=== PATIENT | male | born 1995 | race Caucasian/White ===

== ENCOUNTER 2020-12-27 15:18 | Outpatient (CLI) | payer OTHER ==
[2020-12-27 16:09] VITALS: BP 137/95
--- NOTE | 2020-12-27 16:09 | SLEEP CARE CONSULTATION ---
Information from patient questionnaire entered by Jairo Porter. I have reviewed and concur with the information entered by Jairo Porter. This document represents the service I personally performed and the decisions made by me, Zonia Craft ARNP. History of Present Illness Service Date and Time: 12/27/2020 1518 Reason for Visit: New patient Chief Complaint: reports: Unrefreshed sleep, Snoring, Excessive daytime sleepiness, Observed pauses in breathing, Fatigue Date of Onset: About a year and a half Usual bedtime: Midnight Time it takes to fall asleep: 20-60 minutes Snores at night: Yes Observed to quit breathing while asleep: Yes Sleeps alone due to snoring: No Number of times waking at night: Once Reasons for waking at night: reports: Snoring, Other (Unknown reason). denies: Choking, Gasping for air Toss, Turn, or Twitch while sleeping: Yes Recalls having dreams: Yes Usually gets out of bed at: 6:20; weekends 0730 sometimes Feels refreshed in the morning: No Morning headache: No Sleepy or fatigued during the day: Yes Ever fallen asleep while driving: No Takes day naps: Yes (daily after work for an hour or more) Dreams during day naps: Yes Prior sleep studies: No Additional HPI information: I had the pleasure of seeing TRACY CHOUDHURY today regarding the possibility of him having a sleep disorder. His current complaints are excessive daytime sleepiness, fatigue, snoring and unrefreshed sleep. He is here because his has noted that he is snoring a lot, more than used too. He is really tired all the time. Feels he needs a nap after work every day. He normally gets about an hour or more for his nap. His has said he will pause after he exhales when sleeping. He has woke himself up snoring only when he is just lightly asleep or trying to take a nap. He states he never feels rested, even when getting good amounts of sleep. - Parasomnia Symptoms Ever been unable to move upon waking from sleep: Yes Walks in sleep: No Talks in sleep: No Ever acted out dreams in sleep: Yes (couple times only; sat up in bed with angry dream and yelled) Ever felt weak in the knees when startled or emotional: No Bothered by creepy, crawly, restless sensations in legs: Yes (all the time; feels like he has to move his legs) Problems with memory or concentration: Yes (has hx of ADHD) Subjective Initial [place] Sleepiness Scale score: 10 (in 2020) Past Medical History Past Medical History: reports: Hypertension, Anxiety, Attention deficit, Other (testicular cancer last year, had surgery in Dec 2019; 2 rounds of chemotherapy) Social History The patient's occupation is active duty in the [employer]. Patient is and lives in [place]. Have you smoked in the past 12 months: No Cigarettes per day (20/pack): 10 Years of smokin Quit date: 2012 Smoking Pack Years: 2.0 Alcohol use: Yes Alcohol amount and frequency: 4-6 standard drinks, 3-4 times a week Caffeine use: Yes Caffeine amount and frequency: 250 mg daily Family History Family history of sleep disordered breathing: No Family Hx Sleep Apnea: Mother: Snoring, Father: Snoring Allergies and Home Medications Drug allergies reviewed: Yes (NKDA) Home medication list reviewed: Yes Allergy and home medication list: Lisinopril Prozac 20 mg daily Adderrall extended release 30 mg daily Mulitvitamin Zyrtec daily Review of Systems Weight gain over past 5 years: 20 Cardiovascular: reports: high blood pressure Gastrointestinal: denies: heartburn Neurological: denies: headaches Psychiatric: reports: Attention Deficit Hyperactivity, anxiety Ear/Nose/Throat: reports: dry mouth/throat, wisdom teeth removed. denies: tonsillectomy Endocrine: reports: sluggishness (tired) Physical Exam Blood Pressure: 137/95 Cuff size: wrist Heart Rate: 103 O2 Saturation: 98 Height: 5 ft 10 in Weight: 199 lb 12.8 oz Body Mass Index: 28.6 BMI Classification: Overweight Neck circumference: 16 (inches) Nostrils: patent to airflow Mouth and throat: narrow oropharynx Soft palate: long Hard palate: normal Uvula: normal Uvula visualization: 50% Mallampati Class II Tongue: enlarged in size with teeth mansfield on lateral edges Tonsils: 1+ Chin and jaw: Retrognathia (mild) Neck: normal w/o lymphadenopathy or thyromegaly Heart: regular rate and rhythm Lungs: clear bilaterally Impression and Plan 1. Suspected Obstructive Sleep Apnea-Hypopnea Syndrome, as suggested by a history of loud and irregular snoring, observed cessation of breath while asleep, unrefreshed sleep, cognitive impairment, and excessive daytime sleepiness. Narrow oropharynx and obesity are common predisposing factors for obstructive sleep apnea-hypopnea syndrome. I recommend proceeding to polysomnography to confirm the diagnosis and to assess severity. If the patient has significant sleep disordered breathing, a manual CPAP titration study will also be performed to find the optimal treatment pressure. I informed the patient of what the sleep studies involve and after some discussion, obtained agreement to proceed. The pathophysiology of obstructive sleep apnea-hypopnea syndrome was discussed with the patient and health risks of cardiovascular and cerebrovascular disease if not treated. AAS brochure for obstructive sleep apnea-hypopnea syndrome given and reviewed. Risks of drowsy driving discussed in detail and patient advised to avoid long distance driving and to chain puller at the first sign of drowsiness. Patient agreed to plan. * Schedule polysomnography +- manual CPAP titration study and return in 1-2 weeks after the study to discuss result and initiate therapy. * Avoid long distance driving or driving when feeling sleepy. * Avoid alcohol, sedative and muscle relaxant around bedtime. * Attempt to lose weight. * Review instructions provided by trained office staff on how to prepare for the sleep study. * Return for follow-up after sleep study completed. Counseling Topics: Weight loss health impact Visit Type: In Office Time Spent with Patient (minutes): 30 Provider Statement: I spent 100% of the Face to Face Visit with the patient with greater than 50% spent counseling the patient and coordination of care.
== END 2020-12-27 15:19 | disposition home or self-care (01) ==
LOC: SC 15:18
PROVIDERS: ATTEND Nurse Practitioner Family
DX: R06.83 Snoring (principal); R06.81 Apnea, not elsewhere classified; R41.89 Other symptoms and signs involving cognitive functions and awareness; G47.10 Hypersomnia, unspecified
CPT/HCPCS: 99203; 99212

== ENCOUNTER 2021-01-14 15:00 | Outpatient (CLI) | payer OTHER | END 2021-01-14 15:01 | disposition home or self-care (01) | LOC: SC 15:00 | PROVIDERS: ATTEND Nurse Practitioner Family | DX: G47.33 Obstructive sleep apnea (adult) (pediatric) (principal); R09.02 Hypoxemia; R00.0 Tachycardia, unspecified | CPT/HCPCS: 95806 ==

== ENCOUNTER 2021-01-30 11:31 | Outpatient (CLI) | payer OTHER ==
--- NOTE | 2021-01-30 12:00 | SLEEP CARE CONSULTATION ---
Information from patient questionnaire entered by Luke Felipe MA. I have reviewed and concur with the information entered by Luke Felipe MA. This document represents the service I personally performed and the decisions made by , Zonia Craft ARNP. History of Present Illness Service Date and Time: 01/30/2021 1131 Initial [place] Sleepiness Scale score: 10 (in 2020) Current [place] Sleepiness Scale score: 10 (2020) Additional HPI information: TRACY CHOUDHURY returns for follow up and results of the recently performed home sleep study. I explained the pathophysiology behind obstructive sleep apnea. We then spent quite a bit of time discussing different treatment options. For mild obstructive sleep apnea, surgery and oral appliance are alternatives to nasal CPAP therapy but in moderate or severe cases, nasal CPAP is the most effective and reliable treatment. I reviewed the impact of weight changes on sleep apnea and strongly recommended losing weight. After some discussion, the patient opted to go with the nasal CPAP therapy. Nasal autoCPAP set at 4-15 cmH20 will be ordered with rationale explained. A manual titration study will be ordered if unable to find optimal pressure with office adjustments. I explained how CPAP machine works with sample devices RespirUfora Dreamstation and ResInvenias [id number] and what to expect when using the machine. Using CPAP every night in order to get used to it was emphasized. Patient advised to put CPAP mask on before getting into bed so as not to fall asleep without CPAP. To assist acclimation to CPAP use, it could also be used for a short time during day while reading or watching TV. The patient was instructed to call the CPAP supplier to discuss any mechanical problem that may occur. If the mask given is uncomfortable or is difficult to keep on through the night even with adjustment, contact the CPAP supplier as many will replace with another mask style if notified before 30 days. If snoring or perceives is not getting enough air or too much air from the machine, notify this office. AASM patient education PAP tips reviewed and given to patient. Patient counseled not drink alcohol less than 4 hours before bedtime as it can increase snoring and apnea. Patient was cautioned about risks of drowsy driving until sleepiness symptoms resolve. Sleep Study - Results Type of Sleep Study: Home sleep study Prior sleep studies: No Polysomnography/Home Sleep Study results: Physician Impression: The quality of the study is good. The length of the study is adequate (> 240 minutes). Please also see the tabulated and graphic data. 1. Obstructive Sleep Apnea-Hypopnea (ICD-10 G47.33), mild, with an AHI of 10.8/h r and demetria SaO2 of 80%. During the study, the patient had 23 apneas (23 obstructive, 0 central, 0 mixed) and 35 hypopneas. The longest episode lasted 59.0 seconds. The respiratory events occurred independently of sleep stage and body position (supine AHI was 11.4 and non-supine, 9.10). 2. Hypoxemia (ICD-10 R09.02), mild, with the lowest oxygen saturation of 80 % and 0.9 minutes with SaO2 under 90%. Baseline oxygen saturation was normal (Average oxygen saturation was 95%). 3. Tachycardia, with maximum recorded heart rate of 123 beats per minute. Allergies and Home Medications Home medication list reviewed: Yes (no changes) Review of Systems Review of systems same as previous: Yes (no changes) Physical Exam Vital signs obtained and entered by: Inocencio VARELA Blood Pressure: 123/64 (left) Cuff size: wrist Heart Rate: 96 O2 Saturation: 93 (with Mask) Height: 5 ft 10 in Weight: 195 lb (with boots) Body Mass Index: 27.9 BMI Classification: Overweight Impression and Plan 1. Obstructive Sleep Apnea-Hypopnea Syndrome, mild, with lowest oxygen saturation of 80%. Obviously this is the cause of the patients symptoms of unrefreshed sleep, and excessive daytime sleepiness. Positive pressure therapy could benefit hypertension, anxiety and attention deficit disorder. As mentioned above, the patient will be started on nasal autoCPAP therapy with pressure set at 4-15 cmH2O. A manual titration study will be completed if unable to find optimal treatment pressure with office adjustments. Compliance guidelines also reviewed. A copy of compliance guidelines will be given for reference at check out. 2. Hypoxemia, mild, with the lowest oxygen saturation of 80 % and 0.9 minutes with SaO2 under 90%. His baseline oxygen saturation was normal with an average oxygen saturation of 95%. 3. Tachycardia, with maximum recorded heart rate of 123 beats per minute during HST. Patient states he has had times when he is just sitting and he notes an elevated heart rate on his watch, but states it is not often. He was encouraged to follow up with PCP for further evaluation of elevated heart rate as needed. * Nasal auto CPAP therapy, pressure at 4-15 cm H2O. * follow up with PCP for elevated heart rate prn * Attempt to lose weight. * Avoid alcohol consumption near bedtime. * The patient is again cautioned about driving until sleepiness completely resolves. * Return one month after CPAP obtained. I will assess response to therapy and compliance at that time. Counseling Topics: Weight loss health impact Visit Type: In Office Time Spent with Patient (minutes): 21 Provider Statement: I spent 100% of the Face to Face Visit with the patient with greater than 50% spent counseling the patient and coordination of care.
[2021-01-30 12:01] VITALS: BP 123/64
== END 2021-01-30 11:32 | disposition home or self-care (01) ==
LOC: SC 11:31
PROVIDERS: ATTEND Nurse Practitioner Family
DX: G47.33 Obstructive sleep apnea (adult) (pediatric) (principal); R00.0 Tachycardia, unspecified
CPT/HCPCS: 99212; 99213

== ENCOUNTER 2021-06-06 13:31 | Outpatient (CLI) | payer OTHER ==
[2021-06-06 13:59] VITALS: BP 125/73
--- NOTE | 2021-06-06 13:59 | SLEEP CARE CONSULTATION ---
Information from patient questionnaire entered by Luke Felipe MA. I have reviewed and concur with the information entered by Luke Felipe MA. This document represents the service I personally performed and the decisions made by , Zonia Craft ARNP. History of Present Illness Service Date and Time: 06/06/2021 1331 Previous diagnosis: Mild, Obstructive Sleep Apnea-Hypopnea Syndrome AHI: 10.8 (in 2020) Reason for follow up: first compliance Equipment type: CPAP Equipment obtained from: Other ([facility]; got initial supplies) Mask style: Full face Mask brand: Resmed (RESMED. 04/01 SET UP DATE,) Backup mask available: No (will keep old mask when replaced) Last cushion change: 1 month Prior sleep studies: No Type of Sleep Study: Home sleep study HPI additional information: TRACY CHOUDHURY was diagnosed to have mild, AHI 10.8, obstructive sleep apnea- hypopnea syndrome and returned today for CPAP therapy first compliance follow- up. Sleep Study - Results Type of Sleep Study: Home sleep study Prior sleep studies: No CPAP Compliance Data - Data Reviewed with Patient Average duration of nightly device use: 3 HOURS 31 MINUTES Compliance rate %: 13 Current pressure setting (cmH2O): 4-15 (median 6.2, avg 8.8, max 9.8) Average residual AHI: 2.8 Central apnea: .8 Obstructive apnea: 1.4 Average large leak: 4.6 Subjective Missed days of use due to: reports: other (cleaning/forget thing) Patient concerns: reports: dry mouth, nose, throat (occasional). denies: aerophagia, mask discomfort, air blowing in eyes, mask leak noise, condensation in mask/hose, nasal congestion, epistaxis Observed to snore while using device: No Current pressure setting perceived as: comfortable On therapy, patient: reports: sleeping better, awakening more refreshed, being more awake and alert during the day, more rested overall. denies: drowsiness while driving Initial [place] Sleepiness Scale score: 10 (in 2020) Current [place] Sleepiness Scale score: 8 (2021) Allergies and Home Medications Home medication list reviewed: Yes (no changes) Review of Systems Review of systems same as previous: Yes (no changes) Physical Exam Vital signs obtained and entered by: NOE RAYO Blood Pressure: 125/73 (RIGH, PULSE 72, RESP 16,) Heart Rate: 72 O2 Saturation: 98 (PAPER MASK) Height: 5 ft 10 in Weight: 188 lb Weight change since last visit: 8 lb loss Body Mass Index: 26.9 BMI Classification: Overweight Impression and Plan 1. Obstructive Sleep Apnea-Hypopnea Syndrome, mild, with poor treatment compliance and good apnea control. On CPAP therapy, the patient has better sleep quality and is more rested overall. The patients pressure will be changed to autoCPAP 8-10 cmH20 to reflect pressure being used. Patient advised to contact me if pressure change is uncomfortable so that it can be adjusted. Goals for apnea control discussed. He states early on he would take the mask off a few hours after he went to sleep or just forget to put it on. He has been more co nsistent in putting he mask on at night in the last 2 weeks. He has also had a few night where he made it to 5 hours or so and noticed a difference in feeling rested and less daytime tiredness. Compliance guidelines reviewed for insurance coverage. Patient was counseled on the difference between meeting compliance and optimal use of CPAP. Optimal use of CPAP is use of CPAP with all sleep to obtain maximum benefit of treatment. Patient is encouraged to use CPAP with all sleep. He has had some occasional mouth dryness. Oral dryness can be reduced by adjusting humidity setting higher or heated hose lower or by adjusting both settings. Verbal instructions given on how to change humidity and heated hose settings with rationale explaining why to change. Patient to discuss best option with dentist. Patient's apnea severity and rationale for treatment to reduce apnea, improve sleep quality and reduce cardiovascular and cerebrovascular events was reviewed. I also reviewed the benefit of consistent device use of CPAP for hypertension, anxiety and attention deficit. Patient is overweight. He has lost about 8 pounds since his last visit. I encouraged him to continue to try to lose weight and he voiced understanding. * Change auto CPAP pressure to 8-10 cmH2O * Notify me if snoring with mask or feeling that the pressure is too much or too little * Continue to try to lose weight * Call this office if any problems using CPAP * Return for follow up in 1-2 months, or sooner if concerns arise Counseling Topics: Spare mask, Weight loss health impact Visit Type: In Office Time Spent with Patient (minutes): 21 Provider Statement: I spent 100% of the Face to Face Visit with the patient with greater than 50% spent counseling the patient and coordination of care.
== END 2021-06-06 13:32 | disposition home or self-care (01) ==
LOC: SC 13:31
PROVIDERS: ATTEND Nurse Practitioner Family
DX: G47.33 Obstructive sleep apnea (adult) (pediatric) (principal)
CPT/HCPCS: 99212; 99213

== ENCOUNTER 2021-08-05 13:44 | Outpatient (CLI) | payer OTHER ==
--- NOTE | 2021-08-05 14:16 | SLEEP CARE CONSULTATION ---
Information from patient questionnaire entered by Luke Felipe MA. I have reviewed and concur with the information entered by Luke Felipe MA. This document represents the service I personally performed and the decisions made by , Zonia Craft ARNP. History of Present Illness Service Date and Time: 08/05/2021 1344 Previous diagnosis: Mild, Obstructive Sleep Apnea-Hypopnea Syndrome AHI: 10.8 (in 2020) Reason for follow up: other (2 MONTH F/U, RESMED, ) Equipment type: CPAP Equipment obtained from: Other ([facility]; getting supplies) Mask style: Full face Backup mask available: Yes (old mask) Last cushion change: 2 months Prior sleep studies: No Type of Sleep Study: Home sleep study HPI additional information: TRACY CHOUDHURY was diagnosed to have mild, AHI 10.8, obstructive sleep apnea- hypopnea syndrome and returned today for CPAP therapy 2 month follow-up. Sleep Study - Results Type of Sleep Study: Home sleep study Prior sleep studies: No CPAP Compliance Data - Data Reviewed with Patient Average duration of nightly device use: 3 HOURS 7 MINUTES Compliance rate %: 10 (04/27 - 06/25/2021) Current pressure setting (cmH2O): 4-15 Average residual AHI: 3.1 Central apnea: 1.2 Obstructive apnea: 1.5 Average large leak: 6.6 Compliance data discussion: He does not have a memory chip from his machine to get updated compliance/therapy report. He has been having more nasal congestion lately, difficulty breathing through his nose and will take mask off because he feels like he is suffocating. Subjective Patient concerns: reports: nasal congestion, other (feels like suffocating; may be also due to anxiety). denies: aerophagia, mask discomfort, air blowing in eyes, mask leak noise, condensation in mask/hose, dry mouth, nose, throat, epistaxis Observed to snore while using device: No Current pressure setting perceived as: comfortable On therapy, patient: reports: sleeping better, awakening more refreshed, being more awake and alert during the day, more rested overall. denies: drowsiness while driving Initial [place] Sleepiness Scale score: 10 (in 2020) Current [place] Sleepiness Scale score: 7 (07/2021) Allergies and Home Medications Home medication list reviewed: Yes (no changes) Review of Systems Review of systems same as previous: Yes (no changes) Physical Exam Vital signs obtained and entered by: NOE RAYO Blood Pressure: 135/76 (RIGHT, PULSE 100, RESP 18, ) Heart Rate: 99 O2 Saturation: 97 Height: 5 ft 10 in Weight: 194 lb Body Mass Index: 27.8 BMI Classification: Overweight Impression and Plan 1. Obstructive Sleep Apnea-Hypopnea Syndrome, mild, with poor treatment compliance and good apnea control. On CPAP therapy, the patient has better sleep quality and is more rested overall. He states he has been using it but lately his allergies have been worse. He has been having some nasal congestion which makes him feel like he is not able to breathe and is suffocating. Compliance guidelines reviewed for insurance coverage. Patient was counseled on the difference between meeting compliance and optimal use of CPAP. Optimal use of CPAP is use of CPAP with all sleep to obtain maximum benefit of treatment. Patient is encouraged to use CPAP with all sleep. Patient does have allergies and is taking Zyrtec daily. I informed patient that nasal congestion can be reduced with increasing the CPAP humidity. The heated hose can be adjusted h igher if condensation with higher humidity setting. Saline nasal spray sample can be obtained OTC and used prior to bed to wash off any nasal allergens to facilitate nasal breathing. In addition, a steamy shower before bed will often assist nasal drainage. Patient's apnea severity and rationale for treatment to reduce apnea, improve sleep quality and reduce cardiovascular and cerebrovascular events was reviewed. I also reviewed the benefit of consistent device use of CPAP for hypertension, depression and anxiety. Patient was advised to lose weight to reduce apneas and improve his overall health. * Continue auto CPAP pressure at 4-15 cmH2O * Notify me if snoring with mask or feeling that the pressure is too much or too little * Attempt to lose weight * Call this office if any problems using CPAP * Return for follow up in 1-2 months, or sooner if concerns arise Counseling Topics: Spare mask, Weight loss health impact Visit Type: In Office Time Spent with Patient (minutes): 12 Provider Statement: I spent 100% of the Face to Face Visit with the patient with greater than 50% spent counseling the patient and coordination of care.
[2021-08-05 14:17] VITALS: BP 135/76
== END 2021-08-05 13:45 | disposition home or self-care (01) ==
LOC: SC 13:44
PROVIDERS: ATTEND Nurse Practitioner Family
DX: G47.33 Obstructive sleep apnea (adult) (pediatric) (principal); E66.3 Overweight; Z68.27 Body mass index [BMI] 27.0-27.9, adult
CPT/HCPCS: 99212

== ENCOUNTER 2021-08-17 08:00 | Outpatient (CLI) | payer OTHER | END 2021-08-17 23:59 | disposition home or self-care (01) | LOC: LAB.N 08:00 | PROVIDERS: ATTEND Family Medicine | DX: U07.1 COVID-19 (principal) ==

== ENCOUNTER 2021-10-21 13:23 | Outpatient (CLI) | payer OTHER ==
[2021-10-21 14:35] VITALS: BP 122/78
--- NOTE | 2021-10-21 14:35 | SLEEP CARE CONSULTATION ---
Information from patient questionnaire entered by Luke Felipe MA. I have reviewed and concur with the information entered by Luke Felipe MA. This document represents the service I personally performed and the decisions made by , Zonia Craft ARNP. History of Present Illness Service Date and Time: 10/21/2021 1323 Previous diagnosis: Mild, Obstructive Sleep Apnea-Hypopnea Syndrome AHI: 10.8 (in 2020) Reason for follow up: other (7 WEEK F/U, RESMED, JONES 04/01/2021, ) Equipment type: CPAP Equipment obtained from: Other ([facility]; getting supplies) Mask style: Full face Backup mask available: Yes (other mask) Last cushion change: 1 month Prior sleep studies: Yes Type of Sleep Study: Home sleep study HPI additional information: TRACY CHOUDHURY was diagnosed to have mild, AHI 10.8, obstructive sleep apnea- hypopnea syndrome and returned today for CPAP therapy 7 week follow-up. Sleep Study - Results Type of Sleep Study: Home sleep study Prior sleep studies: No CPAP Compliance Data - Data Reviewed with Patient Average duration of nightly device use: 3 HOURS 8 MINUTES Compliance rate %: 4 (09/06/21-10/20/21; 45 days) Current pressure setting (cmH2O): 8-10 Average residual AHI: 1.2 Central apnea: .5 Obstructive apnea: 4 Hypopnea: .1 Average large leak: 7.0 Subjective Missed days of use due to: reports: mask issues (claustrophobic with mask on), illness (Covid), other (takes longer to fall asleep with the mask on; anxiety) Patient concerns: reports: mask discomfort. denies: aerophagia, air blowing in eyes, mask leak noise, condensation in mask/hose, nasal congestion, dry mouth, nose, throat, epistaxis, other Observed to snore while using device: No Current pressure setting perceived as: comfortable On therapy, patient: reports: sleeping better, more rested overall. denies: drowsiness while driving Initial [place] Sleepiness Scale score: 10 (in 2020) Current [place] Sleepiness Scale score: 9 (10/21/21) Allergies and Home Medications Home medication list reviewed: Yes (no changes) Review of Systems Review of systems same as previous: No (Covid beginning of August 2021) Physical Exam Vital signs obtained and entered by: NOE RAYO Blood Pressure: 122/78 (RESP 18, PULSE 68, RIGHT) Cuff size: wrist Heart Rate: 68 O2 Saturation: 98 (PAPER MASK) Height: 5 ft 10 in Weight: 190 lb (UNIFORM AND BOOTS) Weight change since last visit: HEALTHY DIET, Body Mass Index: 27.2 BMI Classification: Overweight Impression and Plan 1. Obstructive Sleep Apnea-Hypopnea Syndrome, mild, with poor treatment compliance and good apnea control. On CPAP therapy, the patient has better sleep quality and is more rested overall. He has had some claustrophobia with his full face mask that is affecting his compliance. I will write for a mask fitting for a nasal pillows mask to see if this is more comfortable for him. He has one at home and would like to try this. Compliance guidelines reviewed for insurance coverage. Patient was counseled on the difference between meeting compliance and optimal use of CPAP. Optimal use of CPAP is use of CPAP with all sleep to obtain maximum benefit of treatment. Patient is encouraged to use CPAP with all sleep. Patient's apnea severity and rationale for treatment to reduce apnea, improve sleep quality and reduce cardiovascular and cerebrovascular events was reviewed. I also reviewed the benefit of consistent device use of CPAP for hypertension, depression and anxiety. * Continue auto CPAP pressure at 8-10 cmH2O * Mask fitting for nasal pillows mask * Notify me if snoring with mask or feeling that the pressure is too much or too little * Attempt to lose weight * Call this office if any problems using CPAP * Return for follow up in 3 months, or sooner if concerns arise Counseling Topics: Spare mask, Weight loss health impact Visit Type: In Office Time Spent with Patient (minutes): 22 Provider Statement: I spent 100% of the Face to Face Visit with the patient with greater than 50% spent counseling the patient and coordination of care.
== END 2021-10-21 13:24 | disposition home or self-care (01) ==
LOC: SC 13:23
PROVIDERS: ATTEND Nurse Practitioner Family
DX: G47.33 Obstructive sleep apnea (adult) (pediatric) (principal); E66.3 Overweight; Z68.27 Body mass index [BMI] 27.0-27.9, adult
CPT/HCPCS: 99212; 99213

== ENCOUNTER 2022-01-30 12:37 | Outpatient (CLI) | payer OTHER ==
[2022-01-30 13:20] VITALS: BP 130/80
--- NOTE | 2022-01-30 13:20 | SLEEP CARE CONSULTATION ---
Information from patient questionnaire entered by Alesha Ramsey. I have reviewed and concur with the information entered by Alesha Ramsey. This document represents the service I personally performed and the decisions made by me, Zonia Craft ARNP. History of Present Illness Service Date and Time: 01/30/2022 1237 Previous diagnosis: Mild, Obstructive Sleep Apnea-Hypopnea Syndrome AHI: 10.8 (in 2020) Reason for follow up: three month (F/U ) Equipment type: CPAP (RESMED) Equipment obtained from: Other ([facility]; getting supplies) Mask style: Nasal Backup mask available: Yes (other mask) Last cushion change: 1 month Prior sleep studies: No Type of Sleep Study: Home sleep study HPI additional information: TRACY CHOUDHURY was diagnosed to have mild, AHI 10.8, obstructive sleep apnea- hypopnea syndrome and returned today for CPAP therapy three month follow-up. Sleep Study - Results Type of Sleep Study: Home sleep study Prior sleep studies: No CPAP Compliance Data - Data Reviewed with Patient Average duration of nightly device use: 3 hours 10 minutes Compliance rate %: 4 ( days) Current pressure setting (cmH2O): 8-10 Average residual AHI: 3.0 Central apnea: 0.7 Obstructive apnea: 1.9 Subjective Missed days of use due to: reports: mask issues, illness (recent cold), other (will forget to put on when coming back from bathroom) Patient concerns: reports: dry mouth, nose, throat. denies: aerophagia, mask discomfort, air blowing in eyes, mask leak noise, condensation in mask/hose, nasal congestion, epistaxis Observed to snore while using device: No Current pressure setting perceived as: comfortable On therapy, patient: reports: sleeping better, awakening more refreshed, being more awake and alert during the day, more rested overall. denies: drowsiness while driving Initial [place] Sleepiness Scale score: 10 (in 2020) Current [place] Sleepiness Scale score: 8 (01/28/2022) Allergies and Home Medications Drug allergies reviewed: Yes (NKDA) Home medication list reviewed: Yes (no changes) Review of Systems Review of systems same as previous: Yes (no changes) Physical Exam Vital signs obtained and entered by: ALESHA Sanchez MA Blood Pressure: 130/80 (left arm) Cuff size: regular Heart Rate: 102 O2 Saturation: 99 Height: 5 ft 10 in Weight: 197 lb 12.8 oz Body Mass Index: 28.3 BMI Classification: Overweight Impression and Plan 1. Obstructive Sleep Apnea-Hypopnea Syndrome, mild, with poor treatment compliance and good apnea control. On CPAP therapy, the patient has better sleep quality and is more rested overall. Patient states he got a new nasal cushion mask and he is really liking it a lot better. It does not make him feel claustrophobic like the full face mask he was using. He started using his CPAP machine again and then developed a cold which limited his ability to breathe through his nose. He did try some nasal sprays at bedtime which did help with that. He does notice a difference when he uses his CPAP and is committed to c ontinuing using his CPAP. He states sometimes he will get up for the bathroom and forget to put his mask back on. I advised him to put his mask on his pillow to help remind him to replace it before going back to sleep. He voiced understanding and will try this. Patient has significant improvement of their sleep apnea and are satisfied with current CPAP therapy. Patient's apnea severity and rationale for treatment to reduce apnea, improve sleep quality and reduce cardiovascular and cerebrovascular events was reviewed. I also reviewed the benefit of consistent device use of CPAP for hypertension, depression and anxiety. Patient is overweight with a BMI of 28.3 and was advised to lose weight. * Continue auto CPAP pressure at 8-10 cmH2O * Notify me if snoring with mask or feeling that the pressure is too much or too little * Attempt to lose weight * Call this office if any problems using CPAP * Return for follow up in 1-2 months, or sooner if concerns arise Counseling Topics: Spare mask, Weight loss health impact Visit Type: In Office Time Spent with Patient (minutes): 20 Provider Statement: I spent 100% of the Face to Face Visit with the patient with greater than 50% spent counseling the patient and coordination of care.
== END 2022-01-30 12:38 | disposition home or self-care (01) ==
LOC: SC 12:37
PROVIDERS: ATTEND Nurse Practitioner Family
DX: G47.33 Obstructive sleep apnea (adult) (pediatric) (principal); E66.3 Overweight; Z68.28 Body mass index [BMI] 28.0-28.9, adult
CPT/HCPCS: 99212; 99213

== ENCOUNTER 2022-04-02 09:34 | Outpatient (CLI) | payer OTHER ==
--- NOTE | 2022-04-02 09:57 | SLEEP CARE CONSULTATION ---
Information from patient questionnaire entered by Alesha Ramsey. I have reviewed and concur with the information entered by Alesha Ramsey. This document represents the service I personally performed and the decisions made by me, Zonia Craft ARNP. History of Present Illness Service Date and Time: 04/02/2022 0934 Previous diagnosis: Mild, Obstructive Sleep Apnea-Hypopnea Syndrome AHI: 10.8 (in 2020) Reason for follow up: other (6 WEEK F/U ) Equipment type: CPAP (RESMED Airsense 11) Equipment obtained from: Other ([facility]; getting supplies) Mask style: Nasal pillows Backup mask available: Yes (old mask) Last cushion change: 2 months Prior sleep studies: No Type of Sleep Study: Home sleep study HPI additional information: TRACY CHOUDHURY was diagnosed to have mild, AHI 10.8, obstructive sleep apnea- hypopnea syndrome and returned today for CPAP therapy six week follow-up. Sleep Study - Results Type of Sleep Study: Home sleep study Prior sleep studies: No CPAP Compliance Data - Data Reviewed with Patient Average duration of nightly device use: 1 hour 30 minutes Compliance rate %: 0 (09/25 days used) Current pressure setting (cmH2O): 8-10 Average residual AHI: 3.9 Central apnea: 2.3 Obstructive apnea: 1.5 Average large leak: 0 Subjective Missed days of use due to: reports: other (taking mask off while asleep) Patient concerns: reports: air blowing in eyes (occasional, adjustment helps). denies: aerophagia, mask discomfort, mask leak noise, condensation in mask/hose, nasal congestion, dry mouth, nose, throat, epistaxis Observed to snore while using device: No Current pressure setting perceived as: comfortable On therapy, patient: reports: sleeping better, awakening more refreshed, being more awake and alert during the day, more rested overall. denies: drowsiness w hile driving Initial [place] Sleepiness Scale score: 10 (in 2020) Current [place] Sleepiness Scale score: 8 (04/02/22) Allergies and Home Medications Drug allergies reviewed: Yes (NKDA) Home medication list reviewed: Yes (no changes) Review of Systems Review of systems same as previous: Yes (no changes) Physical Exam Vital signs obtained and entered by: ALESHA Sanchez MA Blood Pressure: 132/82 (LEFT ARM) Cuff size: regular Heart Rate: 83 O2 Saturation: 98 Height: 5 ft 10 in Weight: 198 lb 6.4 oz Body Mass Index: 28.4 BMI Classification: Overweight Impression and Plan 1. Obstructive Sleep Apnea-Hypopnea Syndrome, mild, with poor treatment compliance and good apnea control. On CPAP therapy, the patient has better sleep quality and is more rested overall. Patient feels he has been feeling better over the last week about keeping his mask on. His averages an hour and a half with only 6 days out of the last 30 that he is used his CPAP. We talked about strategies to help him get more used to keeping the mask on because he will take it up after falling asleep. He will be placed mask as often as needed to keep mask on for longer. He will also make sure to use the CPAP with any naps. Patient denies problems with oral dryness, nasal congestion, epistaxis, skin irritation or aerophagia. Patient's apnea severity and rationale for treatment to reduce apnea, improve sleep quality and reduce cardiovascular and cerebrovascular events was reviewed. I also reviewed the benefit of consistent device use of CPAP for hypertension, depression and anxiety. 2. Overweight, unspecified. Currently patients BMI is 28.4. Obesity increases the risk of apnea, CPAP pressure requirements and overall health risks especially cardiovascular and diabetes. Thus patient is advised to lose weight. * Continue auto CPAP pressure at 8-10 cmH2O * Notify me if snoring with mask or feeling that the pressure is too much or too little * Attempt to lose weight * Call this office if any problems using CPAP * Return for follow up in 1-2 months, or sooner if concerns arise Counseling Topics: Spare mask, Weight loss health impact Visit Type: In Office Time Spent with Patient (minutes): 11 Provider Statement: I spent 100% of the Face to Face Visit with the patient with greater than 50% spent counseling the patient and coordination of care.
[2022-04-02 09:58] VITALS: BP 132/82
== END 2022-04-02 09:35 | disposition home or self-care (01) ==
LOC: SC 09:34
PROVIDERS: ATTEND Nurse Practitioner Family
DX: G47.33 Obstructive sleep apnea (adult) (pediatric) (principal)
CPT/HCPCS: 99212

== ENCOUNTER 2022-05-15 14:05 | Outpatient (CLI) | payer OTHER ==
[2022-05-15 14:57] VITALS: BP 136/84
--- NOTE | 2022-05-15 14:57 | SLEEP CARE CONSULTATION ---
Information from patient questionnaire entered by Alesha Ramsey. I have reviewed and concur with the information entered by Alesha Ramsey. This document represents the service I personally performed and the decisions made by me, Zonia Craft ARNP. History of Present Illness Service Date and Time: 05/15/2022 1405 Previous diagnosis: Mild, Obstructive Sleep Apnea-Hypopnea Syndrome AHI: 10.8 (in 2020) Reason for follow up: other (SIX WEEK F/U) Equipment type: CPAP (RESMED Airsense 11; s/u 03/2021) Equipment obtained from: Other ([facility]; getting supplies) Mask style: Nasal pillows Backup mask available: Yes (old mask) Prior sleep studies: No Type of Sleep Study: Home sleep study HPI additional information: TRACY CHOUDHURY was diagnosed to have mild, AHI 10.8, obstructive sleep apnea- hypopnea syndrome and returned today for CPAP therapy six weeks follow-up. Sleep Study - Results Type of Sleep Study: Home sleep study Prior sleep studies: No CPAP Compliance Data - Data Reviewed with Patient Average duration of nightly device use: 1 hour 44 minutes Compliance rate %: 3 (08/25 days used) Current pressure setting (cmH2O): 8-10 Average residual AHI: 2.0 Central apnea: 0.4 Obstructive apnea: 1.5 Subjective Missed days of use due to: reports: other (forgetting to put mask on and falls asleep without mask) Patient concerns: reports: mask discomfort (when he has nasal congestion). denies: aerophagia, air blowing in eyes, mask leak noise, condensation in mask/hose, nasal congestion, dry mouth, nose, throat, epistaxis Observed to snore while using device: No Current pressure setting perceived as: comfortable On therapy, patient: reports: sleeping better, awakening more refreshed, being more awake and alert during the day, more rested overall. denies: drowsiness while driving Initial [place] Sleepiness Scale score: 10 (in 2020) Current [place] Sleepiness Scale score: 9 (05/15/22) Allergies and Home Medications Drug allergies reviewed: Yes (NKDA) Home medication list reviewed: Yes (no changes) Review of Systems Review of systems same as previous: Yes (no changes) Physical Exam Vital signs obtained and entered by: ALESHA Sanchez MA Blood Pressure: 136/84 (left arm) Cuff size: regular Heart Rate: 70 O2 Saturation: 98 Height: 5 ft 10 in Weight: 196 lb 3.2 oz Body Mass Index: 28.1 BMI Classification: Overweight Impression and Plan 1. Obstructive Sleep Apnea-Hypopnea Syndrome, mild, with poor treatment compliance and good apnea control. On CPAP therapy, the patient has better sleep quality and is more rested overall. Patient has been either forgetting to put mask on, choosing not to put mask on or falling asleep without his mask. He states that he will lay down and do somethingq quietly before falling asleep. I advised him to put his mask on while he is laying there so he will not fall asleep without it. We also discussed making the conscious decision to put on his mask until it becomes a habit, part of his nightly routine. He voiced understanding and agreement with this plan. He states he is committed to using his CPAP. Patient's apnea severity and rationale for treatment to reduce apnea, improve sleep quality and reduce cardiovascular and cerebrovascular events was reviewed. I also reviewed the benefit of consistent device use of CPAP for hypertension, depression and anxiety. 2. Overweight, unspecified. Currently patients BMI is 28.1. Obesity increases the risk of apnea, CPAP pressure requirements and overall health risks especially cardiovascular and diabetes. Thus patient is advised to lose weight. * Continue auto CPAP pressure at 8-10 cmH2O * Notify me if snoring with mask or feeling that the pressure is too much or too little * Attempt to lose weight * Call this office if any problems using CPAP * Return for follow up in 1 month, or sooner if concerns arise Counseling Topics: Spare mask, Weight loss health impact Visit Type: In Office Time Spent with Patient (minutes): 21 Provider Statement: I spent 100% of the Face to Face Visit with the patient with greater than 50% spent counseling the patient and coordination of care.
== END 2022-05-15 14:06 | disposition home or self-care (01) ==
LOC: SC 14:05
PROVIDERS: ATTEND Nurse Practitioner Family
DX: G47.33 Obstructive sleep apnea (adult) (pediatric) (principal); E66.3 Overweight; Z68.28 Body mass index [BMI] 28.0-28.9, adult
CPT/HCPCS: 99212; 99213

== ENCOUNTER 2022-06-12 08:58 | Outpatient (CLI) | payer OTHER ==
[2022-06-12 09:29] VITALS: BP 136/82
--- NOTE | 2022-06-12 09:29 | SLEEP CARE CONSULTATION ---
Information from patient questionnaire entered by Alesha Ramsey. I have reviewed and concur with the information entered by Alesha Ramsey. This document represents the service I personally performed and the decisions made by me, Zonia Craft ARNP. History of Present Illness Service Date and Time: 06/12/2022 0858 Previous diagnosis: Mild, Obstructive Sleep Apnea-Hypopnea Syndrome AHI: 10.8 (in 2020) Reason for follow up: one month Equipment type: CPAP (RESMED Airsense 11; s/u 03/2021) Equipment obtained from: Other ([facility]; getting supplies) Mask style: Nasal Backup mask available: Yes (old mask) Last cushion change: couple months Prior sleep studies: No Type of Sleep Study: Home sleep study HPI additional information: TRACY CHOUDHURY was diagnosed to have mild, AHI 10.8, obstructive sleep apnea- hypopnea syndrome and returned today for CPAP therapy one month follow-up. Sleep Study - Results Type of Sleep Study: Home sleep study Prior sleep studies: No CPAP Compliance Data - Data Reviewed with Patient Average duration of nightly device use: 3 hours 29 minutes Compliance rate %: 13 (12/26 days used) Current pressure setting (cmH2O): 8-10 Average residual AHI: 3.4 Central apnea: 1.0 Obstructive apnea: 2.1 Subjective Missed days of use due to: reports: illness Patient concerns: reports: dry mouth, nose, throat (dry mouth). denies: aerophagia, mask discomfort, air blowing in eyes, mask leak noise, condensation in mask/hose, nasal congestion, epistaxis Observed to snore while using device: No Current pressure setting perceived as: comfortable On therapy, patient: reports: sleeping better, awakening more refreshed, being more awake and alert during the day, more rested overall. denies: drowsiness while driving Initial [place] Sleepiness Scale score: 10 (in 2020) Current [place] Sleepiness Scale score: 8 () Allergies and Home Medications Known drug allergies: No Drug allergies reviewed: Yes Home medication list reviewed: Yes (no changes) Allergy and home medication list: Allergies No Known Drug Allergies Allergy (Verified 06/11/22 11:28) Review of Systems Review of systems same as previous: Yes (no changes) Physical Exam Vital signs obtained and entered by: ALESHA Sanchez MA Blood Pressure: 136/82 (LEFT ARM) Cuff size: regular Heart Rate: 77 O2 Saturation: 98 Height: 5 ft 10 in Weight: 195 lb 12.8 oz Body Mass Index: 28.0 BMI Classification: Overweight Impression and Plan 1. Obstructive Sleep Apnea-Hypopnea Syndrome, mild, with poor treatment compliance and good apnea control. On CPAP therapy, the patient has better sleep quality and is more rested overall. He has been able to increase his compliance from 3% to 13%. He did have a viral illness that affected his compliance with using his CPAP. He was encouraged to continue to increase time in his mask on each night he uses it and increasing days of use. He voiced understanding and agreement. Patient's apnea severity and rationale for treatment to reduce apnea, improve sleep quality and reduce cardiovascular and cerebrovascular events was reviewed. I also reviewed the benefit of consistent device use of CPAP for hypertension, depression and anxiety. He is moving out of the area next week. He will follow up with sleep provider in new area once he is established. 2. Overweight, unspecified. Currently patients BMI is 28.0. Obesity increases the risk of apnea, CPAP pressure requirements and overall health risks especially cardiovascular and diabetes. Thus patient is advised to lose weight. * Continue auto CPAP pressure at 8-10 cmH2O * Notify me if snoring with mask or feeling that the pressure is too much or too little * Attempt to lose weight * Call this office if any problems using CPAP * Return for follow up in 6 months, or sooner if concerns arise Counseling Topics: Spare mask, Weight loss health impact Visit Type: In Office Time Spent with Patient (minutes): 17 Provider Statement: I spent 100% of the Face to Face Visit with the patient with greater than 50% spent counseling the patient and coordination of care.
== END 2022-06-12 08:59 | disposition home or self-care (01) ==
LOC: SC 08:58
PROVIDERS: ATTEND Nurse Practitioner Family
DX: G47.33 Obstructive sleep apnea (adult) (pediatric) (principal); E66.3 Overweight; Z68.28 Body mass index [BMI] 28.0-28.9, adult
CPT/HCPCS: 99212